=== PATIENT | female | born 1975 | race Caucasian/White ===

== ENCOUNTER 2016-08-16 12:24 | Emergency (ER) | payer OTHER, BC ==
[2016-08-16 12:38] VITALS: RESP 18
[2016-08-16] MEDS ORDERED: DIPH,PERTUSS,TET(ADACEL) VAC/PF 0.5 ML (Tdap) IM ONE (12:39)
[2016-08-16 13:38] LABS: HIV ANTIBODY NEGATIVE (N); HIV-1 P24 ANTIGEN NEGATIVE (N)
--- NOTE | 2016-08-16 15:00 | PDOC ---
Body Fluid Exposure HPI - General Chief Complaint: General Medical Stated Complaint: NEEDLE STICK TO RIGHT 4TH DIGIT Date Seen by Provider: 08/16/16 Time Seen by Provider: 12:25 Source: POSITIVE: Patient Exam Limitations: POSITIVE: No limitations Nurse's Notes Reviewed & Considered: Yes - History of Present Illness Initial Comments: The patient is a 41 year old female. The patient works at the local [employer]. 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 One of this inmate's lancets he uses to monitor his blood glucose fell onto the floor. The lancet had been used. The patient picked up the lancet from the floor and she accidentally poked the palmar aspect of her right ring finger over the metacarpal phalangeal joint with the lancet. The patient has no known medical problems. Her last tetanus vaccination was probably in excess of 10 years. Source person has no medical problems known to the patient. Patient wash the puncture site copiously prior to coming to the emergency room. Incident occurred just LAB TECH. Have you received a tetanus shot in the past 10 years?: No Body Location Affected: REPORTS: Upper Extremity (R) Timing: REPORTS: Abrupt Duration: 1/2 hour Location at Time of Onset: REPORTS: Work Context / Mechanism: REPORTS: Needle Stick, Solid Severity: Mild Associated Symptoms: REPORTS: None Any Prior Injuries Related to Current Complaint?: No - Patient Home Medications Home Medications: Home Medications Estrogens, Conjugated [Premarin] 0.625 mg PO DAILY tab 09/17/13 - Patient Allergies Allergies/Adverse Reactions: Allergies Allergy/AdvReac Type Severity Reaction Status Date / Time No Known Drug Allergies Allergy NOT Verified 08/16/16 12:28 APPLICABLE Past Medical History - heen HEENT History: Denies History Cardiovascular History: Denies History Respiratory History: Denies History Gastrointestinal History: Denies History Genitourinary History: Denies History Endocrine History: Lupus Musculoskeletal History: Denies History Prosthesis or Implant: No Neurological History: Denies History Blood Disorders: Denies History Psychiatric History: Denies History History of Sexually Transmitted Diseases: No Female Reproductive History: Hysterectomy Obstetrical History: Denies History Cancer History: Denies History In Past Year Been Physically Harmed or Verbally Threatened: No History of MDRO: No History of Other Communicable Diseases: No Tobacco Use: Current Every Day Smoker Alcohol Use: Occasionally Substance Use Type: None Anesthesia Reactions: No Malignant Hyperthermia: No Significant Family History: No pertinent family hx Past Medical History Reviewed: Reviewed - No Changes ROS - Limitations ROS Limitations: No Limitations Constitution: REPORTS: Denies Symptoms Cardiovascular: REPORTS: Denies Cardiac Symptoms Respiratory: REPORTS: Denies Resp Symptoms Neurological: REPORTS: Denies Neuro Symptoms Gastrointestinal: REPORTS: Denies GI Symptoms Endocrine: REPORTS: Denies Symptoms Musculoskeletal: REPORTS: Denies MS Symptoms Genitourinary: REPORTS: Denies Symptoms Eyes: REPORTS: Denies Symptoms ENT: REPORTS: Denies Symptoms Skin: REPORTS: Other (Puncture wound palm of right hand over fourth metacarpal phalangeal joint.) Lympathic: REPORTS: Denies Lympathic Symptoms Immunologic: POSITIVE: Denies Symptoms Psychiatric: POSITIVE: Denies Psych Symptoms Body Fluid Exposure PE - General Appearance General Appearance: REPORTS: Alert, Cooperative, No Acute Distress. 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, Motor Normal, Sensation Normal, Mood Appropriate, Affect Appropriate, Reflexes Normal Images - Hands Hand: 1 - Puncture wound Body Fluid Exposure Progress - Results Reviewed by me Lab Results Reviewed: Yes (rapid HIV negative) Lab Results:: Laboratory Results 08/16/16 Range/Units 12:41 HIV 1&2 Antibody Rapid Negative (N) HIV P24 Antigen Negative (N) - Patient's Progress Pain Medication Addressed: POSITIVE: Not Applicable School/Work Release Addressed: POSITIVE: Yes (May return to work) Re-Examine Time:: 12:40 Status: POSITIVE: Unchanged - Consult Counseled: POSITIVE: Patient, RE: Lab Results, RE: DX, RE: Need for F/U Patient Care Time - Estimated PCT Patient Care Time (In Minutes): 15 Vital Signs - Recent Vital Signs Vital Signs: Vital Signs (Last 8 hours) Pulse Resp BP Pulse Ox 08/16/16 12:26 60 18 103/74 97 - VS Reviewed Vital Signs Reviewed: Yes Discharge Clinical Impression: Needle stick injury of finger of right hand Discharge Disposition: Discharged to Home Condition: Stable Patient Instructions Given at Discharge: Needle Stick Injuries (ED) Additional Instructions: Wash wound well daily. I have drawn appropriate blood work (rapid HIV test, hepatitis B test and hepatitis C test) on both you and the patient to used the diabetes lancet. If any of these tests are positive we will let she was no; use can also call the emergency room in 3 or 4 days and we will find the results for you. We have to send the hepatitis tests to a regional laboratory. Return anytime at first sign of infection or if condition worsens in any way. We have given you a Tetanus immunization and you should not need another one of these for at least 7 years. Follow Up With: KATHERINE GARG [Primary Care Provider] - (Instructions as above. Follow -up with your primary care provider. Return here anytime if condition worsens in any way.)
[2016-08-17 13:51] LABS: HEPATITIS B SURF AB QL Positive (())
[2016-08-17 13:53] LABS: HCV AB SCREEN Negative (Negative); HEPATITIS B SURF AB QL Positive (())
== END 2016-08-16 12:54 | disposition home or self-care (01) ==
LOC: ER 12:24
DX: S61.234A Puncture wound without foreign body of right ring finger without damage to nail, initial encounter (principal); F17.210 Nicotine dependence, cigarettes, uncomplicated; X58.XXXA Exposure to other specified factors, initial encounter; Y92.149 Unspecified place in prison as the place of occurrence of the external cause; Y99.0 Civilian activity done for income or pay
CPT/HCPCS: 36415; 86703; 86706; 90471; 99282

== ENCOUNTER → 2016-09-27 | Outpatient (CLI) | payer OTHER, BC ==
[2016-09-27 10:13] LABS: HIV ANTIBODY NEGATIVE (N); HIV-1 P24 ANTIGEN NEGATIVE (N)
[2016-09-28 10:33] LABS: HCV AB SCREEN Negative (Negative)
== END ==
LOC: LAB 09:35
PROVIDERS: ATTEND Family Medicine
DX: Z20.9 Contact with and (suspected) exposure to unspecified communicable disease (principal)
CPT/HCPCS: 36415; 86703; 86803

== ENCOUNTER → 2017-02-19 | Outpatient (CLI) | payer OTHER, BC ==
[2017-02-19 12:38] LABS: HIV ANTIBODY NEGATIVE (N); HIV-1 P24 ANTIGEN NEGATIVE (N)
== END ==
LOC: LAB 10:50
PROVIDERS: ATTEND Family Medicine
DX: Z20.89 Contact with and (suspected) exposure to other communicable diseases (principal)
CPT/HCPCS: 86703; 86803